=== PATIENT | male | born 1995 | race Caucasian/White ===

== ENCOUNTER 2018-10-13 11:04 | Emergency (ER) | payer OTHER ==
[~2018-10-13] VITALS: Ht 167.6 cm; Wt 70.1 kg
[~2018-10-13 11:04] MED LIST: AZAT50TA9 PO; BUDE9TAB PO; IBUP-1623 PO; MESA1.2T PO; OXYC-302 PO
--- NOTE | 2018-10-13 11:51 | NUR ---
TO ROOM FROM LOBBY. NAD.
[2018-10-13] MEDS ORDERED: ONDANSETRON ODT 4 MG PO ONE (12:00)
[2018-10-13] MEDS ORDERED: ACETAMINOPHEN 500 MG TABLET PO ONE (12:00)
[2018-10-13] MEDS ORDERED: ONDANSETRON ODT 4 MG ONE (12:13)
[2018-10-13] MEDS ORDERED: ACETAMINOPHEN 500 MG TABLET ONE (12:13)
[2018-10-13 12:22] LABS: BASOPHILS % (AUTO) 0 % (0-1); EOSINOPHILS # (AUTO) 0.19 x10^3/uL (0-0.4); EOSINOPHILS % (AUTO) 1 % (1-7); LYMPHOCYTES # (AUTO) 0.33 x10^3/uL (1-3.4); LYMPHOCYTES % (AUTO) 3 % (22-44); MD NO; MEAN CORPUSCULAR HEMOGLOBIN 30.1 pg (27.5-34.5); MEAN CORPUSCULAR HGB CONC 34.8 g/dL (33.2-36.2); MEAN CORPUSCULAR VOLUME 86.3 fL (81-97); MEAN PLATELET VOLUME 9.6 fL (7.4-10.4); MONOCYTES # (AUTO) 0.26 x10^3/uL (0.2-0.8); MONOCYTES % (AUTO) 2 % (2-9); NEUTROPHILS # (AUTO) 12.61 x10^3/uL (1.8-6.8); NEUTROPHILS % (AUTO) 94 % (42-75); PLATELET COUNT 214 x10^3/uL (130-400); RED CELL DISTRIBUTION WIDTH 11.8 % (9.4-14.8)
[2018-10-13] MEDS ORDERED: [UNRECOGNIZED DRUG - OTHER] (12:23)
--- NOTE | 2018-10-13 12:30 | NUR ---
URINE COLLECTED/SENT TO LAB. PT MEDICATED PER EMAR FOR N/V AND FEVER/BODY ACHES. CALL LIGHT WITHIN REACH, BLANKET PROVIDED. FRIEND AT BS.
[2018-10-13 12:31] LABS: ALBUMIN 4.2 g/dL (3.4-5.0); ANION GAP 3 mmol/L (5-15); CALCIUM 8.8 mg/dL (8.5-10.1); CHLORIDE 107 mmol/L (98-107)
[2018-10-13 12:33] LABS: ALANINE AMINOTRANSFERASE 21 U/L (12-78); ALKALINE PHOSPHATASE 53 U/L (45-117); BILIRUBIN,TOTAL 0.7 mg/dL (0.2-1.0); CREATININE 1.11 mg/dL (0.7-1.3); TOTAL PROTEIN 7.5 g/dL (6.4-8.2)
[2018-10-13 12:37] LABS: MICROSCOPIC NOT IND
[2018-10-13 12:44] LABS: CULTURE INDICATED? NO
[2018-10-13 13:46] VITALS: BP 126/64
== END 2018-10-13 13:48 | disposition home or self-care (01) ==
LOC: ED 12:43
DX: R11.2 Nausea with vomiting, unspecified (principal)
CPT/HCPCS: 36415; 80053; 81003; 83690; 85025; 99283; Q0162